=== PATIENT | male | born 1995 | race Caucasian/White ===

== ENCOUNTER 2017-07-28 09:50 | Emergency (ER) | payer OTHER ==
[~2017-07-28] VITALS: Ht 180.3 cm; Wt 72.3 kg
[2017-07-28 09:53] VITALS: BP 135/68; TEMP 98.3
[2017-07-28] MEDS ORDERED: XYZAL5 MG PO (10:09)
[2017-07-28] MEDS ORDERED: SINGULAIR 110 MG/TAB (10:10)
[2017-07-28] MEDS ORDERED: AMOXICILLIN 8751 TAB PO (10:39)
[2017-07-28 11:15] VITALS: PULSE 71
== END 2017-07-28 11:15 | disposition home or self-care (01) ==
LOC: COL.ER 09:50
DX: S61.214A Laceration without foreign body of right ring finger without damage to nail, initial encounter (principal); W54.0XXA Bitten by dog, initial encounter; Y92.009 Unspecified place in unspecified non-institutional (private) residence as the place of occurrence of the external cause